=== PATIENT | female | born 1945 | race Caucasian/White ===

== ENCOUNTER 2016-08-14 12:54 | Inpatient (IN) | payer MEDICARE, OTHER ==
[~2016-08-14] VITALS: Ht 152.4 cm; Wt 88.4 kg
[2016-08-14] VITALS (7 sets, daily range): BP systolic 107–148; BP diastolic 57–76
[~2016-08-14 12:54] MED LIST: PHENYLEPHRINE 10 MG/ML ONE; PROPOFOL 10 MG/ML, 20ML ONE; PROPOFOL 10 MG/ML, 50ML ONE
[2016-08-14] MEDS ORDERED: SODIUM CHLORIDE 0.9% 1,000ML IVBOLUS ONE (13:30)
[2016-08-14] MEDS ORDERED: SODIUM CHLORIDE FLUSH 10ML SYR IVF ONE (13:30)
[2016-08-14] MEDS ORDERED: ALBUTEROL/IPRATROPIUM 2.5MG/0.5MG, 3 ML NPPB ONE (13:30)
[2016-08-14 13:56] LABS: ASPARTATE AMINO TRANSFERASE 17 U/L (15-37); BLOOD UREA NITROGEN 77 mg/dL (7-18)
[2016-08-14] MEDS ORDERED: ONDANSETRON 2MG/ML, 2ML IVPush ONE (14:00)
[2016-08-14] MEDS ORDERED: HYDROmorphone 1 MG/ML, 1ML IVPush PRN (14:00)
[2016-08-14] MEDS ORDERED: MECLIZINE CHEWABLE 25 MG TAB PO ONE (14:00)
[2016-08-14] MEDS ORDERED: SODIUM CHLORIDE 0.9% 1,000 ML IV ONE (14:00)
[2016-08-14 14:03] LABS: IS PT STATUS REG ER OR PRE ER? YES
[2016-08-14] MEDS ORDERED: ALBUTEROL/IPRATROPIUM 2.5MG/0.5MG, 3 ML ONE (14:04)
[2016-08-14 14:13] LABS: HEMOGLOBIN 7.1 g/dL (11.7-16.4)
[2016-08-14] MEDS ORDERED: HYDROmorphone 1 MG/ML, 1ML ONE (14:17)
[2016-08-14] MEDS ORDERED: ONDANSETRON 2MG/ML, 2ML ONE (14:18)
[2016-08-14] MEDS ORDERED: MECLIZINE CHEWABLE 25 MG TAB ONE (14:18)
[2016-08-14 14:32] LABS: DIFF TOTAL CELLS COUNTED 100 CELL DIFF
[2016-08-14 14:34] LABS: ANISOCYTOSIS 2+; HYPOCHROMIA 1+; MICROCYTOSIS 1+
[2016-08-14 14:35] LABS: POIKILOCYTOSIS 1+; POLYCHROMASIA 1+
[2016-08-14 14:36] LABS: VERIFY COUNTS? YES
[2016-08-14] MEDS ORDERED: GLIP10TA13 PO (14:40)
[2016-08-14] MEDS ORDERED: ASPI-515 PO (14:40)
[2016-08-14] MEDS ORDERED: CHOL20002 PO (14:40)
[2016-08-14] MEDS ORDERED: SITA50TA PO (14:40)
[2016-08-14] MEDS ORDERED: PANTOPRAZOLE 80 MG in SODIUM CHLORIDE 0.9% 100 ML IV SCH (15:03)
[2016-08-14] MEDS ORDERED: PANTOPRAZOLE 80 MG in SODIUM CHLORIDE 0.9% 50 ML IVPB ONE (15:03)
[2016-08-14] MEDS: SODIUM CHLORIDE 0.9% 1,000 ML IV SCH ×2 (15:34→23:34)
[2016-08-14] MEDS ORDERED: LABETALOL 5MG/ML, 20ML IV PRN (16:00)
[2016-08-14] MEDS ORDERED: BISACODYL 10 MG SUPP PR PRN (16:00)
[2016-08-14] MEDS ORDERED: ACETAMINOPHEN 325 MG TABLET PO PRN (16:00)
[2016-08-14] MEDS ORDERED: INSULIN REGULAR 100 UNITS/ML, 3ML VIAL SQ-INSULIN SCH (16:00)
[2016-08-14] MEDS ORDERED: MORPHINE SULFATE 4 MG/ML, 1ML IVPush PRN (16:00)
[2016-08-14] MEDS ORDERED: POLYETHYLENE GLYCOL 17 GM PACKET PO PRN (16:00)
[2016-08-14] MEDS ORDERED: ONDANSETRON 2MG/ML, 2ML IVP PRN (16:00)
[2016-08-14] MEDS ORDERED: OMNIPAQUE 350 MG/ML, 75ML BOTTLE ONE (16:58)
[2016-08-14] MEDS: INSULIN REGULAR 100 UNITS/ML, 3ML VIAL SQ-INSULIN SCH (21:26)
[2016-08-14 21:27] LABS: HEMOGLOBIN 7.9 g/dL (11.7-16.4)
[2016-08-14] MEDS: PANTOPRAZOLE 80 MG in SODIUM CHLORIDE 0.9% 100 ML IV SCH (21:33)
[2016-08-15] VITALS (7 sets, daily range): BP systolic 127–141; BP diastolic 52–73
[2016-08-15] MEDS: INSULIN REGULAR 100 UNITS/ML, 3ML VIAL SQ-INSULIN SCH ×4 (02:30→20:25)
[2016-08-15] MEDS: SODIUM CHLORIDE 0.9% 1,000 ML IV SCH (03:00)
[2016-08-15] MEDS: D5%-0.45% NACL 1,000 ML IV SCH ×3 (04:00→20:00)
[2016-08-15 04:51] LABS: BLOOD UREA NITROGEN 73 mg/dL (7-18)
[2016-08-15 04:59] LABS: ASPARTATE AMINO TRANSFERASE 116 U/L (15-37)
[2016-08-15 05:07] LABS: HEMOGLOBIN 8.7 g/dL (11.7-16.4)
[2016-08-15] MEDS ORDERED: PROMETHAZINE 25 MG/ML, 1ML IV PRN (09:30)
[2016-08-15] MEDS ORDERED: METOCLOPRAMIDE 5 MG/ML, 2ML IV PRN (09:30)
[2016-08-15] MEDS ORDERED: LABETALOL 5MG/ML, 20ML IV PRN (09:30)
[2016-08-15] MEDS ORDERED: FENTANYL PF 100 MCG/2ML IV PRN (09:30)
[2016-08-15] MEDS ORDERED: OXYcodone 5 MG/5 ML ORAL.SOL UDC PO PRN (09:30)
[2016-08-15] MEDS ORDERED: MEPERIDINE/PF 25MG/0.5ML IVPush PRN (09:30)
[2016-08-15] MEDS ORDERED: ONDANSETRON 2MG/ML, 2ML IVPush PRN (09:30)
[2016-08-15] MEDS ORDERED: hydrALAzine 20 MG/ML, 1ML IV PRN (09:30)
[2016-08-15] MEDS ORDERED: ACETAMINOPHEN 325 MG TABLET PO PRN (09:30)
[2016-08-15] MEDS ORDERED: HYDROmorphone 1 MG/ML, 1ML IV PRN (09:30)
[2016-08-15] MEDS ORDERED: MIDAZOLAM 1 MG/ML, 2ML IV PRN (09:30)
[2016-08-15 10:04] LABS: HEMOGLOBIN 7.8 g/dL (11.7-16.4)
[2016-08-15] MEDS: PANTOPRAZOLE 80 MG in SODIUM CHLORIDE 0.9% 100 ML IV SCH ×2 (10:30→20:25)
[2016-08-15] MEDS ORDERED: MIDAZOLAM 1 MG/ML, 5ML ONE (13:10)
[2016-08-15] MEDS ORDERED: FENTANYL PF 100 MCG/2ML ONE (13:10)
[2016-08-15] MEDS ORDERED: NALOXONE 1 MG/ML, 2ML ONE (13:10)
[2016-08-15] MEDS ORDERED: FLUMAZENIL 0.1 MG/1 ML, 5ML ONE (13:11)
[2016-08-15] MEDS: HYDROmorphone 1 MG/ML, 1ML IV PRN ×3 (15:33→23:08)
[2016-08-15 16:09] LABS: HEMOGLOBIN 7.7 g/dL (11.7-16.4)
[2016-08-15] MEDS: CHOLECALCIFEROL 1,000 UNIT TABLET PO SCH (16:57)
[2016-08-15 21:49] LABS: HEMOGLOBIN 7.9 g/dL (11.7-16.4)
[2016-08-16] VITALS (10 sets, daily range): BP systolic 114–158; BP diastolic 41–73
[2016-08-16] MEDS: HYDROmorphone 1 MG/ML, 1ML IV PRN ×3 (02:03→09:49)
[2016-08-16] MEDS: INSULIN REGULAR 100 UNITS/ML, 3ML VIAL SQ-INSULIN SCH ×4 (02:30→20:10)
[2016-08-16] MEDS: D5%-0.45% NACL 1,000 ML IV SCH ×3 (04:00→20:03)
[2016-08-16 04:59] LABS: HEMOGLOBIN 7.4 g/dL (11.7-16.4)
[2016-08-16 05:12] LABS: BLOOD UREA NITROGEN 35 mg/dL (7-18)
[2016-08-16] MEDS: PANTOPRAZOLE 80 MG in SODIUM CHLORIDE 0.9% 100 ML IV SCH ×2 (06:34→15:48)
[2016-08-16] MEDS ORDERED: DIPHENHYDRAMINE 50 MG/ML, 1ML IVPush ONE (07:00)
[2016-08-16] MEDS ORDERED: ACETAMINOPHEN 325 MG TABLET PO ONE (07:00)
[2016-08-16] MEDS ORDERED: FUROSEMIDE 20 MG/2 ML IVPush ONE (07:00)
[2016-08-16] MEDS: CHOLECALCIFEROL 1,000 UNIT TABLET PO SCH (09:24)
[2016-08-16] MEDS: CEFTRIAXONE PMX 1GM/50ML 50 ML IV SCH (09:54)
[2016-08-16] MEDS: DOXYCYCLINE 100 MG in DEXTROSE 5% 250 ML IV SCH ×2 (11:55→20:10)
[2016-08-16] MEDS ORDERED: FUROSEMIDE 20 MG/2 ML IV ONE (12:00)
[2016-08-16] MEDS: HYDROcodone/APAP 5/325 TABLET PO PRN ×2 (15:48→22:26)
[2016-08-16 16:18] LABS: HEMOGLOBIN 8.2 g/dL (11.7-16.4)
[2016-08-17 01:15] VITALS: BP 115/65
[2016-08-17] MEDS: INSULIN REGULAR 100 UNITS/ML, 3ML VIAL SQ-INSULIN SCH ×4 (01:38→21:42)
[2016-08-17] MEDS: PANTOPRAZOLE 80 MG in SODIUM CHLORIDE 0.9% 100 ML IV SCH ×3 (01:41→19:08)
[2016-08-17] MEDS: D5%-0.45% NACL 1,000 ML IV SCH ×2 (01:42→08:57)
[2016-08-17 05:07] LABS: BLOOD UREA NITROGEN 24 mg/dL (7-18)
[2016-08-17 05:13] LABS: HEMOGLOBIN 9.4 g/dL (11.7-16.4)
[2016-08-17] MEDS: HYDROcodone/APAP 5/325 TABLET PO PRN ×4 (05:43→21:33)
[2016-08-17 08:05] VITALS: BP 109/66
[2016-08-17] MEDS: CHOLECALCIFEROL 1,000 UNIT TABLET PO SCH (08:54)
[2016-08-17] MEDS: DOXYCYCLINE 100 MG in DEXTROSE 5% 250 ML IV SCH ×2 (08:54→21:23)
[2016-08-17 10:18] LABS: HEMOGLOBIN 8.5 g/dL (11.7-16.4)
[2016-08-17] MEDS: CEFTRIAXONE PMX 1GM/50ML 50 ML IV SCH (10:32)
[2016-08-17] MEDS ORDERED: FUROSEMIDE 20 MG/2 ML IV ONE (12:30)
[2016-08-17 13:10] VITALS: BP 117/64
[2016-08-17 15:57] LABS: HEMOGLOBIN 8.9 g/dL (11.7-16.4)
[2016-08-17 19:01] VITALS: BP 104/60
[2016-08-17] MEDS ORDERED: ALBUTEROL/IPRATROPIUM 2.5MG/0.5MG, 3 ML NPPB PRN (20:30)
[2016-08-17 21:40] LABS: HEMOGLOBIN 9.6 g/dL (11.7-16.4)
[2016-08-18] MEDS: INSULIN REGULAR 100 UNITS/ML, 3ML VIAL SQ-INSULIN SCH ×4 (02:30→20:30)
[2016-08-18 03:46] VITALS: BP 131/76
[2016-08-18 05:20] LABS: HEMOGLOBIN 9.2 g/dL (11.7-16.4)
[2016-08-18 05:29] LABS: BLOOD UREA NITROGEN 16 mg/dL (7-18)
[2016-08-18] MEDS: PANTOPRAZOLE 80 MG in SODIUM CHLORIDE 0.9% 100 ML IV SCH ×2 (05:30→15:24)
[2016-08-18] MEDS: HYDROmorphone 1 MG/ML, 1ML IV PRN ×2 (08:31→14:19)
[2016-08-18 08:43] VITALS: BP 137/79
[2016-08-18] MEDS: CEFTRIAXONE PMX 1GM/50ML 50 ML IV SCH (09:22)
[2016-08-18] MEDS: CHOLECALCIFEROL 1,000 UNIT TABLET PO SCH (09:25)
[2016-08-18] MEDS: DOXYCYCLINE 100 MG in DEXTROSE 5% 250 ML IV SCH ×2 (10:05→21:48)
[2016-08-18 14:28] VITALS: BP 117/72
[2016-08-18] MEDS: HYDROcodone/APAP 5/325 TABLET PO PRN (18:13)
[2016-08-18 20:34] VITALS: BP 102/61
[2016-08-19] MEDS: HYDROcodone/APAP 5/325 TABLET PO PRN ×4 (00:52→20:45)
[2016-08-19 01:01] VITALS: BP 116/69
[2016-08-19] MEDS: INSULIN REGULAR 100 UNITS/ML, 3ML VIAL SQ-INSULIN SCH ×4 (02:30→20:48)
[2016-08-19] MEDS: HYDROmorphone 1 MG/ML, 1ML IV PRN ×2 (03:34→08:26)
[2016-08-19] MEDS: PANTOPRAZOLE 80 MG in SODIUM CHLORIDE 0.9% 100 ML IV SCH ×2 (03:34→16:43)
[2016-08-19 05:00] LABS: HEMOGLOBIN 8.6 g/dL (11.7-16.4)
[2016-08-19 05:05] LABS: BLOOD UREA NITROGEN 15 mg/dL (7-18)
[2016-08-19] MEDS: CHOLECALCIFEROL 1,000 UNIT TABLET PO SCH (08:26)
[2016-08-19] MEDS: CEFTRIAXONE PMX 1GM/50ML 50 ML IV SCH (08:31)
[2016-08-19] MEDS ORDERED: POTASSIUM CHLORIDE 20 MEQ TAB.ER.PRT PO ONE (09:00)
[2016-08-19 09:04] VITALS: BP 116/64
[2016-08-19] MEDS: DOXYCYCLINE 100 MG in DEXTROSE 5% 250 ML IV SCH ×2 (09:33→20:35)
[2016-08-19 14:19] VITALS: BP 98/62
[2016-08-19 19:05] VITALS: BP 111/67
[2016-08-20 01:24] VITALS: BP 129/59
[2016-08-20] MEDS: INSULIN REGULAR 100 UNITS/ML, 3ML VIAL SQ-INSULIN SCH ×4 (02:30→20:31)
[2016-08-20 05:23] LABS: BLOOD UREA NITROGEN 14 mg/dL (7-18)
[2016-08-20 05:27] LABS: HEMOGLOBIN 8.7 g/dL (11.7-16.4)
[2016-08-20] MEDS: HYDROmorphone 1 MG/ML, 1ML IV PRN ×2 (05:30→10:34)
[2016-08-20 05:48] LABS: DIFF TOTAL CELLS COUNTED 100 CELL DIFF
[2016-08-20 05:49] LABS: ANISOCYTOSIS 1+; VERIFY COUNTS? YES
[2016-08-20 05:50] LABS: LARGE PLATELETS 1+; POLYCHROMASIA 1+
[2016-08-20 08:33] VITALS: BP 125/70
[2016-08-20] MEDS ORDERED: FLUMAZENIL 0.1 MG/1 ML, 5ML ONE (09:40)
[2016-08-20] MEDS ORDERED: NALOXONE 1 MG/ML, 2ML ONE (09:40)
[2016-08-20] MEDS ORDERED: MIDAZOLAM 1 MG/ML, 5ML ONE (09:40)
[2016-08-20] MEDS ORDERED: FENTANYL PF 100 MCG/2ML ONE (09:40)
[2016-08-20] MEDS ORDERED: LIDOCAINE 2%, 20ML ONE (10:49)
[2016-08-20 11:59] VITALS: BP 133/55
[2016-08-20] MEDS: DOXYCYCLINE 100 MG in DEXTROSE 5% 250 ML IV SCH ×2 (12:04→20:42)
[2016-08-20] MEDS: CHOLECALCIFEROL 1,000 UNIT TABLET PO SCH (12:07)
[2016-08-20] MEDS: CEFTRIAXONE PMX 1GM/50ML 50 ML IV SCH (13:39)
[2016-08-20 15:45] VITALS: BP 130/50
[2016-08-20] MEDS: PANTOPRAZOLE 80 MG in SODIUM CHLORIDE 0.9% 100 ML IV SCH ×2 (16:56→20:00)
[2016-08-20 19:02] VITALS: BP 107/66
[2016-08-20] MEDS: HYDROcodone/APAP 5/325 TABLET PO PRN (20:42)
[2016-08-21 00:59] VITALS: BP 115/71
[2016-08-21 05:38] LABS: HEMOGLOBIN 9.3 g/dL (11.7-16.4)
[2016-08-21 06:31] VITALS: BP 112/68
[2016-08-21] MEDS: PANTOPRAZOLE 80 MG in SODIUM CHLORIDE 0.9% 100 ML IV SCH ×2 (06:37→17:52)
[2016-08-21] MEDS: INSULIN REGULAR 100 UNITS/ML, 3ML VIAL SQ-INSULIN SCH ×4 (07:00→21:00)
[2016-08-21] MEDS: CHOLECALCIFEROL 1,000 UNIT TABLET PO SCH (09:23)
[2016-08-21] MEDS: DOXYCYCLINE 100 MG in DEXTROSE 5% 250 ML IV SCH ×2 (09:26→21:30)
[2016-08-21] MEDS: CEFTRIAXONE PMX 1GM/50ML 50 ML IV SCH (10:39)
[2016-08-21 13:06] VITALS: BP 97/58
[2016-08-21] MEDS: HYDROcodone/APAP 5/325 TABLET PO PRN (17:52)
[2016-08-21] MEDS: DOCUSATE 100 MG CAPSULE PO PRN (17:52)
[2016-08-21 20:54] VITALS: BP 103/56
[2016-08-22] MEDS: PANTOPRAZOLE 80 MG in SODIUM CHLORIDE 0.9% 100 ML IV SCH ×3 (01:48→22:05)
[2016-08-22 02:35] VITALS: BP 111/65
[2016-08-22 05:21] LABS: BLOOD UREA NITROGEN 11 mg/dL (7-18)
[2016-08-22 05:36] LABS: HEMOGLOBIN 7.6 g/dL (11.7-16.4)
[2016-08-22] MEDS: INSULIN REGULAR 100 UNITS/ML, 3ML VIAL SQ-INSULIN SCH ×4 (06:17→19:59)
[2016-08-22] MEDS ORDERED: LIDOCAINE 2%, 20ML ONE (08:13)
[2016-08-22] MEDS: CHOLECALCIFEROL 1,000 UNIT TABLET PO SCH (08:32)
[2016-08-22] MEDS ORDERED: MIDAZOLAM 1 MG/ML, 5ML ONE (08:58)
[2016-08-22] MEDS ORDERED: FENTANYL PF 100 MCG/2ML ONE (08:58)
[2016-08-22] MEDS ORDERED: FLUMAZENIL 0.1 MG/1 ML, 5ML ONE (08:58)
[2016-08-22] MEDS ORDERED: NALOXONE 1 MG/ML, 2ML ONE (08:58)
[2016-08-22] MEDS: DOXYCYCLINE 100 MG in DEXTROSE 5% 250 ML IV SCH ×2 (10:28→20:01)
[2016-08-22] MEDS: CEFTRIAXONE PMX 1GM/50ML 50 ML IV SCH (12:30)
[2016-08-22 13:00] VITALS: BP 130/61
[2016-08-22] MEDS: DOCUSATE 100 MG CAPSULE PO PRN (20:26)
[2016-08-22 20:38] VITALS: BP 140/57
[2016-08-23] MEDS: HYDROcodone/APAP 5/325 TABLET PO PRN (00:37)
[2016-08-23 01:53] VITALS: BP 122/68
[2016-08-23] MEDS: INSULIN REGULAR 100 UNITS/ML, 3ML VIAL SQ-INSULIN SCH ×3 (07:00→16:00)
[2016-08-23 07:34] VITALS: BP 113/38
[2016-08-23] MEDS: CHOLECALCIFEROL 1,000 UNIT TABLET PO SCH (09:18)
[2016-08-23] MEDS: PANTOPRAZOLE 80 MG in SODIUM CHLORIDE 0.9% 100 ML IV SCH (09:22)
[2016-08-23 15:02] VITALS: BP 139/55
[2016-08-23] MEDS ORDERED: INSU100V5 SQ-INSULIN (15:41)
[2016-08-23] MEDS ORDERED: PANT40TA3 PO (15:41)
[2016-08-23] MEDS ORDERED: DOCU-30 PO (15:41)
== END 2016-08-23 17:33 | DRG 356 ==
LOC: ED 14:30 → EDIP 15:24 → 3NW 17:46
PROVIDERS: ADMIT Family Medicine; ATTEND Family Medicine
PROC: 30233N1 Transfusion of Nonautologous Red Blood Cells into Peripheral Vein, Percutaneous Approach (ICD-10-PCS; 2016-08-14)
PROC: 0T9B70Z Drainage of Bladder with Drainage Device, Via Natural or Artificial Opening (ICD-10-PCS; 2016-08-14)
PROC: 0DB68ZX Excision of Stomach, Via Natural or Artificial Opening Endoscopic, Diagnostic (ICD-10-PCS; 2016-08-15)
PROC: 30233N1 Transfusion of Nonautologous Red Blood Cells into Peripheral Vein, Percutaneous Approach (ICD-10-PCS; 2016-08-15)
PROC: 0FB13ZX Excision of Right Lobe Liver, Percutaneous Approach, Diagnostic (ICD-10-PCS; 2016-08-15)
PROC: 30233N1 Transfusion of Nonautologous Red Blood Cells into Peripheral Vein, Percutaneous Approach (ICD-10-PCS; principal; 2016-08-16)
PROC: 06H03DZ Insertion of Intraluminal Device into Inferior Vena Cava, Percutaneous Approach (ICD-10-PCS; 2016-08-20)
PROC: 0JH63XZ Insertion of Tunneled Vascular Access Device into Chest Subcutaneous Tissue and Fascia, Percutaneous Approach (ICD-10-PCS; 2016-08-22)
PROC: 02HV33Z Insertion of Infusion Device into Superior Vena Cava, Percutaneous Approach (ICD-10-PCS; 2016-08-22)
PROC: B5181ZA Fluoroscopy of Superior Vena Cava using Low Osmolar Contrast, Guidance (ICD-10-PCS; 2016-08-22)
DX: C16.9 Malignant neoplasm of stomach, unspecified (principal); K25.4 Chronic or unspecified gastric ulcer with hemorrhage; N17.0 Acute kidney failure with tubular necrosis; J18.9 Pneumonia, unspecified organism; E44.0 Moderate protein-calorie malnutrition; C78.7 Secondary malignant neoplasm of liver and intrahepatic bile duct; I82.409 Acute embolism and thrombosis of unspecified deep veins of unspecified lower extremity; J98.11 Atelectasis; C78.89 Secondary malignant neoplasm of other digestive organs; K92.1 Melena; R65.10 Systemic inflammatory response syndrome (SIRS) of non-infectious origin without acute organ dysfunction; D72.829 Elevated white blood cell count, unspecified; D64.9 Anemia, unspecified; I10 Essential (primary) hypertension; Z66 Do not resuscitate; F17.210 Nicotine dependence, cigarettes, uncomplicated; E78.5 Hyperlipidemia, unspecified; E11.65 Type 2 diabetes mellitus with hyperglycemia; E11.621 Type 2 diabetes mellitus with foot ulcer; I25.10 Atherosclerotic heart disease of native coronary artery without angina pectoris; L97.519 Non-pressure chronic ulcer of other part of right foot with unspecified severity; Z82.49 Family history of ischemic heart disease and other diseases of the circulatory system; Z87.442 Personal history of urinary calculi; Z91.19 Patient's noncompliance with other medical treatment and regimen; Z83.3 Family history of diabetes mellitus; Z79.84 Long term (current) use of oral hypoglycemic drugs; Z90.710 Acquired absence of both cervix and uterus; Z68.38 Body mass index [BMI] 38.0-38.9, adult; D35.02 Benign neoplasm of left adrenal gland; R16.0 Hepatomegaly, not elsewhere classified; L97.509 Non-pressure chronic ulcer of other part of unspecified foot with unspecified severity
CPT/HCPCS: 36415; 36561; 37191; 47000; 70450; 71010; 71260; 74020; 74176; 76937; 77001; 77012; 80048; 80053; 80307; 81001; 82010; 82378; 82962; 83036; 83605; 83690; 83880; 84484; 85014; 85018; 85025; 85610; 86301; 86850; 86900; 86923; 87040; 88305; 88307; 88341; 88342; 93005; 94640; 96361; 96365; 96375; 99156; 99157; J0696; J1170; J1815; J2250; J2405; J2704; J3010; J3490; J7060; J7620; Q9967; C1769; C1788; C1880; C9113; G0461; J1200; J1642; J1940; J2310; J2370; J7030; P9016

== ENCOUNTER 2016-10-08 16:56 | Inpatient (IN) | payer MEDICARE ==
[~2016-10-08] VITALS: Ht 152.4 cm; Wt 75.1 kg
[2016-10-08] MEDS ORDERED: SODIUM CHLORIDE 0.9% 1,000 ML IV ONE (17:34)
[2016-10-08] MEDS ORDERED: SODIUM CHLORIDE FLUSH 10ML SYR IVF ONE (18:00)
[2016-10-08 18:27] LABS: BLOOD UREA NITROGEN 29 mg/dL (7-18)
[2016-10-08 18:31] LABS: ASPARTATE AMINO TRANSFERASE 30 U/L (15-37)
[2016-10-08] MEDS ORDERED: HEPARIN 25,000 UNITS/500ML PMX 0 ML ONE (20:17)
[2016-10-08] MEDS ORDERED: HEPARIN 5,000 UNITS/ML, 1ML ONE (20:17)
[2016-10-08] MEDS ORDERED: NS + 20MEQ KCL 1,000 ML IV SCH (20:17)
[2016-10-08] MEDS ORDERED: HEPARIN 5,000 UNITS/ML, 1ML IV ONE (20:30)
[2016-10-08] MEDS ORDERED: morphine SULFATE 10 MG/ML, 1ML IVPush PRN (20:30)
[2016-10-08] MEDS ORDERED: DOCUSATE 100 MG CAPSULE PO PRN (20:30)
[2016-10-08] MEDS ORDERED: POLYETHYLENE GLYCOL 17 GM PACKET PO PRN (20:30)
[2016-10-08 21:43] VITALS: BP 115/69
[2016-10-08] MEDS: OXYcodone IR 5MG TABLET PO PRN (22:39)
[2016-10-08] MEDS: PANTOPROZOLE 40MG TABLET PO SCH (23:19)
[2016-10-08] MEDS: SITAGLIPTIN 50MG TABLET PO SCH (23:20)
[2016-10-08] MEDS: PROCHLORPERAZINE 10MG TABLET PO PRN (23:21)
[2016-10-08] MEDS: SUCRALFATE 1 GM/10 ML UDC PO SCH (23:50)
[2016-10-09] MEDS: HEPARIN 25,000 UNITS/500ML PMX 500 ML IV PRN
[2016-10-09 01:07] VITALS: BP 156/84
[2016-10-09] MEDS: ONDANSETRON 2MG/ML, 2ML IVPush PRN ×2 (01:34→17:21)
[2016-10-09 07:07] LABS: BLOOD UREA NITROGEN 32 mg/dL (7-18)
[2016-10-09 08:57] VITALS: BP 109/68
[2016-10-09 09:06] VITALS: BP 127/82
[2016-10-09] MEDS: HEPARIN 5,000 UNITS/ML, 1ML IV PRN (09:07)
[2016-10-09] MEDS: SENNA/DOCUSATE TABLET PO SCH (09:08)
[2016-10-09] MEDS: SUCRALFATE 1 GM/10 ML UDC PO SCH ×4 (09:08→20:28)
[2016-10-09] MEDS: PANTOPROZOLE 40MG TABLET PO SCH ×2 (09:08→20:28)
[2016-10-09] MEDS: SITAGLIPTIN 50MG TABLET PO SCH ×2 (09:08→20:28)
[2016-10-09] MEDS: OXYcodone IR 5MG TABLET PO PRN ×2 (14:02→18:40)
[2016-10-09 15:15] VITALS: BP 122/76
[2016-10-09 19:02] VITALS: BP 115/74
[2016-10-10 01:32] VITALS: BP 126/74
[2016-10-10] MEDS: HEPARIN 25,000 UNITS/500ML PMX 500 ML IV PRN (04:46)
[2016-10-10] MEDS: OXYcodone IR 5MG TABLET PO PRN (05:35)
[2016-10-10 07:59] VITALS: BP 132/57
[2016-10-10] MEDS: SENNA/DOCUSATE TABLET PO SCH (08:00)
[2016-10-10] MEDS: SITAGLIPTIN 50MG TABLET PO SCH ×2 (08:00→21:01)
[2016-10-10] MEDS: PANTOPROZOLE 40MG TABLET PO SCH ×2 (08:00→21:01)
[2016-10-10] MEDS: SUCRALFATE 1 GM/10 ML UDC PO SCH ×4 (08:00→21:01)
[2016-10-10] MEDS: ONDANSETRON 2MG/ML, 2ML IVPush PRN (12:07)
[2016-10-10 14:34] VITALS: BP 143/65
[2016-10-10 20:49] VITALS: BP 137/59
[2016-10-11 01:13] VITALS: BP 120/46
[2016-10-11 04:41] LABS: BLOOD UREA NITROGEN 27 mg/dL (7-18)
[2016-10-11] MEDS: OXYcodone IR 5MG TABLET PO PRN ×2 (04:43→21:53)
[2016-10-11 06:27] LABS: DIFF TOTAL CELLS COUNTED 100 CELL DIFF
[2016-10-11 06:46] LABS: ANISOCYTOSIS 1+; HYPOCHROMIA 1+; VERIFY COUNTS? YES
[2016-10-11 07:27] VITALS: BP 134/62
[2016-10-11] MEDS: PANTOPROZOLE 40MG TABLET PO SCH ×2 (07:37→20:34)
[2016-10-11] MEDS: SUCRALFATE 1 GM/10 ML UDC PO SCH ×4 (07:37→20:34)
[2016-10-11] MEDS: SITAGLIPTIN 50MG TABLET PO SCH ×2 (07:38→20:35)
[2016-10-11] MEDS: SENNA/DOCUSATE TABLET PO SCH (07:38)
[2016-10-11] MEDS: HEPARIN 25,000 UNITS/500ML PMX 500 ML IV PRN (07:42)
[2016-10-11] MEDS ORDERED: BISACODYL 10 MG SUPP PR PRN (09:30)
[2016-10-11 13:10] VITALS: BP 132/55
[2016-10-11 17:33] LABS: OCCBLD OBC PASS
[2016-10-11 19:37] VITALS: BP 134/46
[2016-10-12 00:52] VITALS: BP 128/79
[2016-10-12] MEDS: OXYcodone IR 5MG TABLET PO PRN ×2 (05:45→14:13)
[2016-10-12 07:00] VITALS: BP 110/55
[2016-10-12] MEDS: SITAGLIPTIN 50MG TABLET PO SCH ×2 (08:37→20:23)
[2016-10-12] MEDS: SUCRALFATE 1 GM/10 ML UDC PO SCH ×4 (08:37→20:23)
[2016-10-12] MEDS: SENNA/DOCUSATE TABLET PO SCH (08:37)
[2016-10-12] MEDS: PANTOPROZOLE 40MG TABLET PO SCH ×2 (08:37→20:23)
[2016-10-12 13:40] VITALS: BP 119/55
[2016-10-12] MEDS: HEPARIN 25,000 UNITS/500ML PMX 500 ML IV PRN (14:08)
[2016-10-12 20:32] VITALS: BP 109/35
[2016-10-13 00:39] VITALS: BP 95/58
[2016-10-13] MEDS: OXYcodone IR 5MG TABLET PO PRN ×3 (02:51→22:28)
[2016-10-13 05:12] LABS: BLOOD UREA NITROGEN 14 mg/dL (7-18)
[2016-10-13] MEDS: HEPARIN 5,000 UNITS/ML, 1ML IV PRN (05:47)
[2016-10-13 06:45] VITALS: BP 113/53
[2016-10-13] MEDS: SUCRALFATE 1 GM/10 ML UDC PO SCH ×4 (07:25→21:01)
[2016-10-13] MEDS: ONDANSETRON 8 MG TABLET PO PRN ×2 (08:36→15:48)
[2016-10-13] MEDS: PANTOPROZOLE 40MG TABLET PO SCH ×2 (08:37→21:01)
[2016-10-13] MEDS: SITAGLIPTIN 50MG TABLET PO SCH ×2 (08:37→21:01)
[2016-10-13] MEDS: SENNA/DOCUSATE TABLET PO SCH (08:37)
[2016-10-13] MEDS: ENOXAPARIN 80 MG/0.8 ML SQ SCH ×2 (09:12→21:01)
[2016-10-13] MEDS: PROCHLORPERAZINE 10MG TABLET PO PRN (13:25)
[2016-10-13 14:43] VITALS: BP 117/56
[2016-10-13 19:07] VITALS: BP 117/71
[2016-10-14] VITALS (9 sets, daily range): BP systolic 103–129; BP diastolic 64–81
[2016-10-14 04:57] LABS: BLOOD UREA NITROGEN 13 mg/dL (7-18)
[2016-10-14] MEDS: OXYcodone IR 5MG TABLET PO PRN ×2 (06:17→22:28)
[2016-10-14 06:33] LABS: OCCBLD OBC PASS
[2016-10-14] MEDS ORDERED: FUROSEMIDE 20 MG/2 ML IVPush ONE (07:30)
[2016-10-14] MEDS: SUCRALFATE 1 GM/10 ML UDC PO SCH ×4 (08:14→19:57)
[2016-10-14] MEDS: ENOXAPARIN 80 MG/0.8 ML SQ SCH ×2 (08:14→19:57)
[2016-10-14] MEDS: PANTOPROZOLE 40MG TABLET PO SCH ×2 (08:14→19:57)
[2016-10-14] MEDS: SITAGLIPTIN 50MG TABLET PO SCH ×2 (08:15→19:57)
[2016-10-14] MEDS: SENNA/DOCUSATE TABLET PO SCH (08:15)
[2016-10-14] MEDS: POTASSIUM CHLORIDE 20 MEQ TAB.ER.PRT PO SCH ×2 (08:18→17:31)
[2016-10-15 00:40] VITALS: BP 133/77
[2016-10-15] MEDS: OXYcodone IR 5MG TABLET PO PRN ×2 (02:36→10:21)
[2016-10-15 05:06] LABS: BLOOD UREA NITROGEN 12 mg/dL (7-18)
[2016-10-15 07:00] VITALS: BP 147/76
[2016-10-15] MEDS: SUCRALFATE 1 GM/10 ML UDC PO SCH ×3 (07:55→17:19)
[2016-10-15] MEDS: PANTOPROZOLE 40MG TABLET PO SCH (07:55)
[2016-10-15] MEDS: ENOXAPARIN 80 MG/0.8 ML SQ SCH ×2 (07:56→18:17)
[2016-10-15] MEDS: SITAGLIPTIN 50MG TABLET PO SCH (07:56)
[2016-10-15] MEDS: SENNA/DOCUSATE TABLET PO SCH (07:56)
[2016-10-15] MEDS ORDERED: OXYC5TAB3 PO (12:41)
[2016-10-15] MEDS ORDERED: PANT40TA5 PO (12:41)
[2016-10-15] MEDS ORDERED: SUCR1ORA2 PO (12:41)
[2016-10-15] MEDS ORDERED: ENOX80SY4 SQ (12:41)
[2016-10-15 12:53] VITALS: BP 106/63
== END 2016-10-15 18:00 | disposition home or self-care (01) | DRG 299 ==
LOC: SUATTDRO 20:11 → ED 20:11 → EDIP 20:20 → 3NW 21:23
PROVIDERS: ADMIT Family Medicine; ATTEND Family Medicine
PROC: 30233N1 Transfusion of Nonautologous Red Blood Cells into Peripheral Vein, Percutaneous Approach (ICD-10-PCS; principal; 2016-10-14)
DX: I82.411 Acute embolism and thrombosis of right femoral vein (principal); E43 Unspecified severe protein-calorie malnutrition; C16.9 Malignant neoplasm of stomach, unspecified; C78.7 Secondary malignant neoplasm of liver and intrahepatic bile duct; D68.69 Other thrombophilia; I82.441 Acute embolism and thrombosis of right tibial vein; I82.431 Acute embolism and thrombosis of right popliteal vein; G89.29 Other chronic pain; I82.491 Acute embolism and thrombosis of other specified deep vein of right lower extremity; D63.8 Anemia in other chronic diseases classified elsewhere; E11.40 Type 2 diabetes mellitus with diabetic neuropathy, unspecified; E11.65 Type 2 diabetes mellitus with hyperglycemia; E78.5 Hyperlipidemia, unspecified; I10 Essential (primary) hypertension; D63.0 Anemia in neoplastic disease; K21.9 Gastro-esophageal reflux disease without esophagitis; K59.00 Constipation, unspecified; R33.9 Retention of urine, unspecified; Z66 Do not resuscitate; Z82.49 Family history of ischemic heart disease and other diseases of the circulatory system; Z83.2 Family history of diseases of the blood and blood-forming organs and certain disorders involving the immune mechanism; Z85.028 Personal history of other malignant neoplasm of stomach; Z87.11 Personal history of peptic ulcer disease; Z87.442 Personal history of urinary calculi; Z87.891 Personal history of nicotine dependence; Z79.84 Long term (current) use of oral hypoglycemic drugs; Z90.710 Acquired absence of both cervix and uterus; Z68.32 Body mass index [BMI] 32.0-32.9, adult
CPT/HCPCS: 36415; 80048; 80053; 82272; 83690; 83735; 85014; 85018; 85025; 85520; 85610; 85730; 86850; 86870; 86880; 86900; 86902; 86922; 86923; 87324; 93005; 99285; J1644; J1650; J2405; J3480; Q0162; Q0164; J1940; J2270; P9016

== ENCOUNTER → 2016-10-08 | Outpatient (CLI) | payer MEDICARE ==
[~2016-10-08] MED LIST changes: +ASPI-515 PO; +CHOL20002 PO; +DOCU-30 PO; +GLIP10TA13 PO; +INSU100V5 SQ-INSULIN; +ONDA-40 PO; +PANT40TA3 PO; -PHENYLEPHRINE 10 MG/ML ONE; +PROC10TA PO; -PROPOFOL 10 MG/ML, 20ML ONE; -PROPOFOL 10 MG/ML, 50ML ONE; +SITA50TA PO
== END | disposition home or self-care (01) ==
LOC: RAD 15:35
PROVIDERS: ATTEND Internal Medicine Hematology & Oncology
DX: I82.491 Acute embolism and thrombosis of other specified deep vein of right lower extremity (principal); C16.6 Malignant neoplasm of greater curvature of stomach, unspecified

== ENCOUNTER 2016-10-17 17:42 | Inpatient (IN) | payer MEDICARE ==
[~2016-10-17] VITALS: Ht 152.4 cm; Wt 70.8 kg
[~2016-10-17 17:42] MED LIST changes: +ENOX80SY4 SQ; +OXYC5TAB3 PO; +PANT40TA5 PO; +SUCR1ORA2 PO
[2016-10-17] MEDS ORDERED: SODIUM CHLORIDE 0.9% 1,000 ML IV ONE (18:24)
[2016-10-17] MEDS ORDERED: PANTOPRAZOLE 40 MG IV IVPush ONE (18:30)
[2016-10-17] MEDS ORDERED: FAMOTIDINE 20 MG/2 ML IVPush ONE (18:30)
[2016-10-17] MEDS ORDERED: SODIUM CHLORIDE 0.9% 1,000ML IVBOLUS ONE (18:30)
[2016-10-17] MEDS ORDERED: SODIUM CHLORIDE FLUSH 10ML SYR IVF ONE (18:30)
[2016-10-17 19:24] LABS: ASPARTATE AMINO TRANSFERASE 44 U/L (15-37); BLOOD UREA NITROGEN 21 mg/dL (7-18)
[2016-10-17 19:51] LABS: DIFF TOTAL CELLS COUNTED 100 CELL DIFF
[2016-10-17 19:55] LABS: ANISOCYTOSIS 2+; POLYCHROMASIA 1+
[2016-10-17 19:56] LABS: LARGE PLATELETS 1+; POIKILOCYTOSIS 1+
[2016-10-17 19:57] LABS: VERIFY COUNTS? YES
[2016-10-17] MEDS ORDERED: PANTOPRAZOLE 40 MG IV ONE (20:24)
[2016-10-17] MEDS ORDERED: FAMOTIDINE 20 MG/2 ML ONE (20:24)
[2016-10-17] MEDS ORDERED: NS + 20MEQ KCL 1,000 ML IV SCH ×2 (20:39→21:30)
[2016-10-17] MEDS ORDERED: DO NOT GIVE MC SCH (21:00)
[2016-10-17] MEDS ORDERED: PROMETHAZINE 25 MG/ML, 1ML IM PRN (21:00)
[2016-10-17] MEDS ORDERED: ACETAMINOPHEN 325 MG TABLET PO PRN (21:00)
[2016-10-17] MEDS ORDERED: POLYETHYLENE GLYCOL 17 GM PACKET PO PRN (21:00)
[2016-10-17] MEDS: SITAGLIPTIN 50MG TABLET PO SCH ×2 (21:00→23:00)
[2016-10-17] MEDS ORDERED: BISACODYL 10 MG SUPP PR PRN (21:00)
[2016-10-17] MEDS ORDERED: GLUCAGON 1 MG IM PRN (21:00)
[2016-10-17] MEDS: INSULIN ASPART 100 UNITS/ML, PEN SQ-INSULIN SCH (21:00)
[2016-10-17] MEDS ORDERED: DOCUSATE 100 MG CAPSULE PO PRN (21:00)
[2016-10-17] MEDS ORDERED: DEXTROSE 4 GM TAB.CHEW PO PRN (21:00)
[2016-10-17] MEDS ORDERED: DEXTROSE 50%, 50ML SYRINGE IVPush PRN (21:00)
[2016-10-17 22:55] VITALS: BP 131/54
[2016-10-17] MEDS: SUCRALFATE 1 GM/10 ML UDC PO SCH (23:00)
[2016-10-17] MEDS: SODIUM CHLORIDE FLUSH 10ML SYR IVF SCH (23:00)
[2016-10-17] MEDS: HEPARIN 25,000 UNITS/500ML PMX 500 ML IV PRN (23:36)
[2016-10-17] MEDS: OXYcodone IR 5MG TABLET PO PRN (23:43)
[2016-10-18 00:21] VITALS: BP 131/58
[2016-10-18] MEDS: OXYcodone IR 5MG TABLET PO PRN ×3 (06:15→18:25)
[2016-10-18 06:29] VITALS: BP 138/83
[2016-10-18 06:45] LABS: BLOOD UREA NITROGEN 18 mg/dL (7-18)
[2016-10-18] MEDS: INSULIN ASPART 100 UNITS/ML, PEN SQ-INSULIN SCH ×4 (07:00→19:45)
[2016-10-18] MEDS: SUCRALFATE 1 GM/10 ML UDC PO SCH ×4 (08:09→19:46)
[2016-10-18] MEDS: SITAGLIPTIN 50MG TABLET PO SCH ×2 (08:10→19:46)
[2016-10-18] MEDS: PANTOPRAZOLE 40 MG IV IVPush SCH ×2 (08:10→19:46)
[2016-10-18] MEDS: SODIUM CHLORIDE FLUSH 10ML SYR IVF SCH ×2 (09:00→19:47)
[2016-10-18 13:49] VITALS: BP 112/75
[2016-10-18 19:21] VITALS: BP 131/77
[2016-10-19 02:32] VITALS: BP 133/59
[2016-10-19] MEDS: HEPARIN 25,000 UNITS/500ML PMX 500 ML IV PRN (04:34)
[2016-10-19] MEDS: OXYcodone IR 5MG TABLET PO PRN (04:36)
[2016-10-19] MEDS: INSULIN ASPART 100 UNITS/ML, PEN SQ-INSULIN SCH ×4 (07:00→21:00)
[2016-10-19 07:33] VITALS: BP 102/66
[2016-10-19] MEDS: SUCRALFATE 1 GM/10 ML UDC PO SCH ×4 (08:11→22:11)
[2016-10-19] MEDS: SITAGLIPTIN 50MG TABLET PO SCH ×2 (08:11→22:11)
[2016-10-19] MEDS: SODIUM CHLORIDE FLUSH 10ML SYR IVF SCH ×2 (08:11→21:00)
[2016-10-19] MEDS: PANTOPRAZOLE 40 MG IV IVPush SCH ×2 (08:11→22:11)
[2016-10-19 12:42] VITALS: BP 108/62
[2016-10-19 13:05] LABS: ASPARTATE AMINO TRANSFERASE 44 U/L (15-37); BLOOD UREA NITROGEN 13 mg/dL (7-18)
[2016-10-19] MEDS ORDERED: FAMOTIDINE 20 MG/2 ML IVPush ONE (14:30)
[2016-10-19] MEDS ORDERED: DIPHENHYDRAMINE 50 MG/ML, 1ML IVPush ONE (14:30)
[2016-10-19] MEDS ORDERED: ONDANSETRON 8 MG in SODIUM CHLORIDE 0.9% 50 ML IVPB ONE (14:30)
[2016-10-19] MEDS ORDERED: DEXTROSE 5% IV ONE (15:00)
[2016-10-19] MEDS ORDERED: OXALIPLATIN 150 MG in DEXTROSE 5% 250 ML IV ONE (15:00)
[2016-10-19] MEDS ORDERED: LEUCOVORIN IV ONE (15:00)
[2016-10-19] MEDS ORDERED: FLUOROURACIL IV ONE (17:00)
[2016-10-19] MEDS ORDERED: FLUOROURACIL IV SCH (17:00)
[2016-10-19] MEDS ORDERED: SODIUM CHLORIDE 0.9% IV SCH (17:00)
[2016-10-19] MEDS: ONDANSETRON 2MG/ML, 2ML IVPush PRN (17:57)
[2016-10-19 21:08] VITALS: BP 125/43
[2016-10-19 22:34] LABS: OCCBLD OBC PASS
[2016-10-20 02:31] VITALS: BP 114/70
[2016-10-20] MEDS ORDERED: DIPHENOXYLATE/ATROPINE TABLET PO PRN ×3 (04:00→08:00)
[2016-10-20] MEDS: OXYcodone IR 5MG TABLET PO PRN ×2 (06:01→23:02)
[2016-10-20 07:28] VITALS: BP 135/42
[2016-10-20] MEDS: SUCRALFATE 1 GM/10 ML UDC PO SCH ×4 (08:08→21:20)
[2016-10-20] MEDS: SITAGLIPTIN 50MG TABLET PO SCH ×2 (08:08→21:21)
[2016-10-20] MEDS: INSULIN ASPART 100 UNITS/ML, PEN SQ-INSULIN SCH ×4 (08:08→21:00)
[2016-10-20] MEDS: PANTOPRAZOLE 40 MG IV IVPush SCH ×2 (08:09→21:21)
[2016-10-20] MEDS: SODIUM CHLORIDE FLUSH 10ML SYR IVF SCH ×2 (08:09→21:21)
[2016-10-20] MEDS: HEPARIN 25,000 UNITS/500ML PMX 500 ML IV PRN (10:00)
[2016-10-20 12:55] VITALS: BP 104/63
[2016-10-20] MEDS ORDERED: FLUOROURACIL IV SCH (19:30)
[2016-10-20] MEDS ORDERED: SODIUM CHLORIDE 0.9% IV SCH (19:30)
[2016-10-20 21:45] VITALS: BP 115/43
[2016-10-21] MEDS: morphine SULFATE 10 MG/ML, 1ML IVPush PRN (00:07)
[2016-10-21 01:40] VITALS: BP 118/57
[2016-10-21 04:43] LABS: BLOOD UREA NITROGEN 12 mg/dL (7-18)
[2016-10-21] MEDS: OXYcodone IR 5MG TABLET PO PRN ×3 (05:59→20:45)
[2016-10-21] MEDS: SODIUM CHLORIDE FLUSH 10ML SYR IVF SCH ×2 (07:50→20:45)
[2016-10-21] MEDS: PANTOPRAZOLE 40 MG IV IVPush SCH ×2 (07:50→20:45)
[2016-10-21] MEDS: SUCRALFATE 1 GM/10 ML UDC PO SCH ×4 (07:50→17:40)
[2016-10-21] MEDS: SITAGLIPTIN 50MG TABLET PO SCH ×2 (07:50→20:45)
[2016-10-21] MEDS: INSULIN ASPART 100 UNITS/ML, PEN SQ-INSULIN SCH ×4 (07:57→20:43)
[2016-10-21 08:01] VITALS: BP 143/52
[2016-10-21] MEDS ORDERED: POTASSIUM CHLORIDE 20 MEQ TAB.ER.PRT PO ONE (13:00)
[2016-10-21 13:59] VITALS: BP 117/42
[2016-10-21] MEDS: ONDANSETRON 2MG/ML, 2ML IVPush PRN (14:06)
[2016-10-21] MEDS: HEPARIN 25,000 UNITS/500ML PMX 500 ML IV PRN (17:37)
[2016-10-21 20:45] VITALS: BP 123/44
[2016-10-22 01:55] VITALS: BP 148/58
[2016-10-22] MEDS: OXYcodone IR 5MG TABLET PO PRN ×2 (03:04→22:31)
[2016-10-22 07:59] LABS: BLOOD UREA NITROGEN 10 mg/dL (7-18)
[2016-10-22] MEDS: INSULIN ASPART 100 UNITS/ML, PEN SQ-INSULIN SCH ×4 (08:37→21:00)
[2016-10-22] MEDS: SUCRALFATE 1 GM/10 ML UDC PO SCH ×4 (08:38→22:31)
[2016-10-22] MEDS: PANTOPRAZOLE 40 MG IV IVPush SCH ×2 (08:38→22:30)
[2016-10-22] MEDS: SITAGLIPTIN 50MG TABLET PO SCH ×2 (08:38→22:31)
[2016-10-22] MEDS: SODIUM CHLORIDE FLUSH 10ML SYR IVF SCH ×2 (09:00→22:31)
[2016-10-22 09:03] VITALS: BP 124/47
[2016-10-22] MEDS ORDERED: POTASSIUM CHLORIDE 20 MEQ TAB.ER.PRT PO ONE (13:30)
[2016-10-22 13:46] VITALS: BP 124/66
[2016-10-22] MEDS: ONDANSETRON 2MG/ML, 2ML IVPush PRN (14:53)
[2016-10-22] MEDS: HEPARIN 25,000 UNITS/500ML PMX 500 ML IV PRN (17:27)
[2016-10-22 20:20] VITALS: BP 135/51
[2016-10-23] MEDS ORDERED: MORPHINE SULFATE 4 MG/ML, 1ML ONE (01:16)
[2016-10-23] MEDS: morphine SULFATE 10 MG/ML, 1ML IVPush PRN (01:19)
[2016-10-23 02:35] VITALS: BP 137/46
[2016-10-23 05:19] LABS: BLOOD UREA NITROGEN 8 mg/dL (7-18)
[2016-10-23] MEDS: INSULIN ASPART 100 UNITS/ML, PEN SQ-INSULIN SCH ×4 (07:00→21:00)
[2016-10-23] MEDS: SUCRALFATE 1 GM/10 ML UDC PO SCH ×4 (07:48→21:15)
[2016-10-23] MEDS: PANTOPRAZOLE 40 MG IV IVPush SCH ×2 (07:48→21:15)
[2016-10-23] MEDS: SITAGLIPTIN 50MG TABLET PO SCH ×2 (10:34→21:16)
[2016-10-23] MEDS: SODIUM CHLORIDE FLUSH 10ML SYR IVF SCH ×2 (10:34→21:15)
[2016-10-23] MEDS ORDERED: POTASSIUM CHLORIDE 20 MEQ TAB.ER.PRT PO ONE (11:00)
[2016-10-23] MEDS ORDERED: POLYETHYLENE GLYCOL 17 GM PACKET NG ONE (11:00)
[2016-10-23 12:43] VITALS: BP 127/49
[2016-10-23] MEDS: FUROSEMIDE 40 MG/4 ML IV SCH (16:53)
[2016-10-23] MEDS: HEPARIN 25,000 UNITS/500ML PMX 500 ML IV PRN (19:51)
[2016-10-23 20:35] VITALS: BP 114/72
[2016-10-23] MEDS: OXYcodone IR 5MG TABLET PO PRN (22:58)
[2016-10-24 05:19] VITALS: BP 118/48
[2016-10-24 06:45] LABS: BLOOD UREA NITROGEN 7 mg/dL (7-18)
[2016-10-24] MEDS: INSULIN ASPART 100 UNITS/ML, PEN SQ-INSULIN SCH ×4 (08:55→20:41)
[2016-10-24] MEDS: FUROSEMIDE 40 MG/4 ML IV SCH ×2 (08:55→16:11)
[2016-10-24] MEDS: PANTOPRAZOLE 40 MG IV IVPush SCH ×2 (08:55→20:53)
[2016-10-24] MEDS: SUCRALFATE 1 GM/10 ML UDC PO SCH ×4 (08:55→20:53)
[2016-10-24] MEDS: SODIUM CHLORIDE FLUSH 10ML SYR IVF SCH ×2 (08:56→20:54)
[2016-10-24] MEDS: SITAGLIPTIN 50MG TABLET PO SCH ×2 (08:56→20:54)
[2016-10-24 09:05] VITALS: BP 118/45
[2016-10-24] MEDS ORDERED: POTASSIUM CHLORIDE 20 MEQ TAB.ER.PRT PO ONE (12:30)
[2016-10-24] MEDS: ENOXAPARIN 80 MG/0.8 ML SQ SCH (13:15)
[2016-10-24 14:09] VITALS: BP 119/54
[2016-10-24 20:45] VITALS: BP 137/49
[2016-10-24] MEDS: OXYcodone IR 5MG TABLET PO PRN (20:53)
[2016-10-25] VITALS (7 sets, daily range): BP systolic 108–123; BP diastolic 41–87
[2016-10-25] MEDS: ENOXAPARIN 80 MG/0.8 ML SQ SCH ×2 (00:41→11:32)
[2016-10-25 01:22] LABS: BLOOD UREA NITROGEN 8 mg/dL (7-18)
[2016-10-25] MEDS: ZOLPIDEM 5MG TABLET PO PRN (01:54)
[2016-10-25] MEDS: INSULIN ASPART 100 UNITS/ML, PEN SQ-INSULIN SCH ×4 (07:00→20:51)
[2016-10-25] MEDS: SODIUM CHLORIDE FLUSH 10ML SYR IVF SCH ×2 (07:58→20:52)
[2016-10-25] MEDS: SUCRALFATE 1 GM/10 ML UDC PO SCH ×4 (07:58→20:52)
[2016-10-25] MEDS: PANTOPRAZOLE 40 MG IV IVPush SCH (07:58)
[2016-10-25] MEDS: FUROSEMIDE 40 MG/4 ML IV SCH ×2 (07:58→16:20)
[2016-10-25] MEDS: OXYcodone IR 5MG TABLET PO PRN ×2 (07:59→20:52)
[2016-10-25] MEDS: SITAGLIPTIN 50MG TABLET PO SCH ×2 (07:59→20:52)
[2016-10-25] MEDS ORDERED: DIPHENHYDRAMINE 25 MG CAPSULE PO ONE ×2 (16:00→23:00)
[2016-10-25] MEDS ORDERED: ACETAMINOPHEN 325 MG TABLET PO ONE ×2 (16:00→23:00)
[2016-10-25] MEDS: PANTOPROZOLE 40MG TABLET PO SCH ×2 (16:19→23:09)
[2016-10-26] VITALS (9 sets, daily range): BP systolic 110–155; BP diastolic 44–79
[2016-10-26] MEDS: ENOXAPARIN 80 MG/0.8 ML SQ SCH ×2 (00:51→13:20)
[2016-10-26] MEDS: ZOLPIDEM 5MG TABLET PO PRN (01:50)
[2016-10-26] MEDS: SUCRALFATE 1 GM/10 ML UDC PO SCH ×4 (07:41→19:48)
[2016-10-26] MEDS: INSULIN ASPART 100 UNITS/ML, PEN SQ-INSULIN SCH ×4 (07:41→19:48)
[2016-10-26] MEDS: SITAGLIPTIN 50MG TABLET PO SCH ×2 (07:41→19:48)
[2016-10-26] MEDS: FUROSEMIDE 40 MG/4 ML IV SCH (07:41)
[2016-10-26] MEDS: SODIUM CHLORIDE FLUSH 10ML SYR IVF SCH ×2 (07:41→19:48)
[2016-10-26] MEDS: PANTOPROZOLE 40MG TABLET PO SCH (10:54)
[2016-10-26] MEDS: ONDANSETRON 2MG/ML, 2ML IVPush PRN (17:24)
[2016-10-27] MEDS: PANTOPROZOLE 40MG TABLET PO SCH ×2 (00:37→11:11)
[2016-10-27] MEDS: ENOXAPARIN 80 MG/0.8 ML SQ SCH ×2 (00:38→13:00)
[2016-10-27] MEDS: ZOLPIDEM 5MG TABLET PO PRN (00:41)
[2016-10-27 01:05] VITALS: BP 111/52
[2016-10-27] MEDS: SODIUM CHLORIDE FLUSH 10ML SYR IVF SCH (08:00)
[2016-10-27] MEDS: INSULIN ASPART 100 UNITS/ML, PEN SQ-INSULIN SCH ×2 (08:00→11:00)
[2016-10-27] MEDS ORDERED: PANT40TA5 PO (10:54)
[2016-10-27] MEDS: SUCRALFATE 1 GM/10 ML UDC PO SCH ×2 (11:00→11:10)
[2016-10-27] MEDS: SITAGLIPTIN 50MG TABLET PO SCH (11:11)
[2016-11-03] MEDS ORDERED: PANT40TA5 PO (13:51)
[2016-11-03] MEDS ORDERED: SUCR1ORA2 PO (13:51)
== END 2016-10-27 13:15 | disposition home or self-care (01) | DRG 374 ==
LOC: ED 20:06 → EDIP 20:07 → SUATTDRO 20:15 → ED 20:36 → 3NW 21:25
PROC: 3E04305 Introduction of Other Antineoplastic into Central Vein, Percutaneous Approach (ICD-10-PCS; principal; 2016-10-25)
PROC: 30233N1 Transfusion of Nonautologous Red Blood Cells into Peripheral Vein, Percutaneous Approach (ICD-10-PCS; 2016-10-25)
DX: C16.9 Malignant neoplasm of stomach, unspecified (principal); E43 Unspecified severe protein-calorie malnutrition; K92.1 Melena; C78.7 Secondary malignant neoplasm of liver and intrahepatic bile duct; D68.59 Other primary thrombophilia; D68.32 Hemorrhagic disorder due to extrinsic circulating anticoagulants; Z51.11 Encounter for antineoplastic chemotherapy; E87.6 Hypokalemia; D64.9 Anemia, unspecified; E11.9 Type 2 diabetes mellitus without complications; E78.5 Hyperlipidemia, unspecified; F17.210 Nicotine dependence, cigarettes, uncomplicated; I10 Essential (primary) hypertension; Z66 Do not resuscitate; Z79.01 Long term (current) use of anticoagulants; Z83.3 Family history of diabetes mellitus; Z86.718 Personal history of other venous thrombosis and embolism; Z87.11 Personal history of peptic ulcer disease; Z92.21 Personal history of antineoplastic chemotherapy; Z68.30 Body mass index [BMI] 30.0-30.9, adult; T45.515A Adverse effect of anticoagulants, initial encounter
CPT/HCPCS: 36415; 80048; 80053; 82272; 82330; 82962; 83690; 85014; 85018; 85025; 85520; 85610; 85730; 86850; 86870; 86900; 86902; 86922; 86923; 87324; 93005; 96374; 96375; J0640; J1644; J1650; J1815; J1940; J2405; J2550; J3480; J7060; C9113; J1200; J2270; J7030; J9190; J9263; P9016; Q0163; S0028

== ENCOUNTER 2016-11-05 15:53 | Emergency (ER) | payer MEDICARE ==
[~2016-11-05] VITALS: Ht 154.9 cm; Wt 73.1 kg
[2016-11-05] MEDS ORDERED: ONDANSETRON 2MG/ML, 2ML IVPush ONE (16:30)
[2016-11-05] MEDS ORDERED: MORPHINE SULFATE 4 MG/ML, 1ML ONE ×2 (16:54→17:48)
[2016-11-05] MEDS ORDERED: ONDANSETRON 2MG/ML, 2ML ONE (16:55)
[2016-11-05] MEDS: MORPHINE SULFATE 4 MG/ML, 1ML IVPush PRN ×2 (17:06→17:50)
[2016-11-05 17:13] LABS: BLOOD UREA NITROGEN 9 mg/dL (7-18)
[2016-11-05 17:17] LABS: IS PT STATUS REG ER OR PRE ER? YES
[2016-11-05] MEDS ORDERED: POTASSIUM CHLORIDE 20 MEQ TAB.ER.PRT ONE (17:48)
[2016-11-05 17:53] VITALS: BP 159/61
[2016-11-05] MEDS ORDERED: POTASSIUM CHLORIDE 20 MEQ TAB.ER.PRT PO ONE (18:00)
== END 2016-11-05 18:21 | disposition home or self-care (01) ==
LOC: ED 18:00
DX: R07.2 Precordial pain (principal); E11.9 Type 2 diabetes mellitus without complications; E78.5 Hyperlipidemia, unspecified; I10 Essential (primary) hypertension; Z85.028 Personal history of other malignant neoplasm of stomach; Z87.891 Personal history of nicotine dependence; Z86.718 Personal history of other venous thrombosis and embolism
CPT/HCPCS: 36415; 71010; 80048; 82040; 83880; 84484; 85025; 85610; 93005; 96374; 96375; 96376; 99285; J2405

== ENCOUNTER → 2016-12-04 | Outpatient (CLI) | payer MEDICARE ==
[~2016-12-04] MED LIST changes: +OMNIPAQUE 350 MG/ML, 100ML BOTTLE ONE
== END | disposition home or self-care (01) ==
LOC: CFH 12:24
PROVIDERS: ATTEND Internal Medicine Hematology & Oncology
DX: C16.6 Malignant neoplasm of greater curvature of stomach, unspecified (principal); C78.7 Secondary malignant neoplasm of liver and intrahepatic bile duct; C79.51 Secondary malignant neoplasm of bone; K86.9 Disease of pancreas, unspecified; I82.4Z2 Acute embolism and thrombosis of unspecified deep veins of left distal lower extremity
CPT/HCPCS: 71260; 74177; 93971; Q9967

== ENCOUNTER 2016-12-13 12:13 | Emergency (ER) | payer MEDICARE ==
[~2016-12-13] VITALS: Ht 154.9 cm; Wt 81.0 kg
[~2016-12-13 12:13] MED LIST changes: -OMNIPAQUE 350 MG/ML, 100ML BOTTLE ONE
[2016-12-13] MEDS ORDERED: SODIUM CHLORIDE FLUSH 10ML SYR IVF ONE (12:30)
[2016-12-13] MEDS ORDERED: PLEASE ENTER HEIGHT AND WEIGHT MC SCH (12:30)
[2016-12-13 13:33] LABS: BLOOD UREA NITROGEN 16 mg/dL (7-18)
[2016-12-13] MEDS ORDERED: POTASSIUM CHLORIDE 20 MEQ TAB.ER.PRT PO ONE (14:00)
[2016-12-13] MEDS ORDERED: POTASSIUM CHLORIDE 20 MEQ TAB.ER.PRT ONE (14:09)
[2016-12-13 14:48] VITALS: BP 124/54
== END 2016-12-13 14:50 | disposition home or self-care (01) ==
LOC: ED 13:43
DX: S00.93XA Contusion of unspecified part of head, initial encounter (principal); E11.65 Type 2 diabetes mellitus with hyperglycemia; E78.5 Hyperlipidemia, unspecified; I10 Essential (primary) hypertension; Z86.718 Personal history of other venous thrombosis and embolism; W18.11XA Fall from or off toilet without subsequent striking against object, initial encounter; Y93.89 Activity, other specified; Y92.091 Bathroom in other non-institutional residence as the place of occurrence of the external cause; Y99.9 Unspecified external cause status
CPT/HCPCS: 36415; 70450; 71010; 72125; 80048; 82040; 82550; 85025; 85610; 99285

== ENCOUNTER 2017-01-04 10:44 | Inpatient (IN) | payer MEDICARE ==
[~2017-01-04] VITALS: Ht 165.1 cm; Wt 76.0 kg
[2017-01-04] MEDS ORDERED: MECLIZINE CHEWABLE 25 MG TAB ONE (11:23)
[2017-01-04] MEDS ORDERED: MECLIZINE CHEWABLE 25 MG TAB PO ONE (11:30)
[2017-01-04 12:00] LABS: BLOOD UREA NITROGEN 7 mg/dL (7-18)
[2017-01-04 12:03] LABS: DIFF TOTAL CELLS COUNTED 100 CELL DIFF
[2017-01-04 12:11] LABS: IS PT STATUS REG ER OR PRE ER? YES
[2017-01-04] MEDS ORDERED: POTASSIUM CHLORIDE 20 MEQ TAB.ER.PRT PO ONE (13:00)
[2017-01-04 13:05] LABS: HEMATOCRIT 28.1 % (34.6-47.8)
[2017-01-04 13:07] LABS: WHITE BLOOD COUNT 4.2 x10^3/uL (3.4-10)
[2017-01-04 13:08] LABS: HEMOGLOBIN 9.5 g/dL (11.7-16.4)
[2017-01-04 13:18] LABS: OVALOCYTES 1+; VERIFY COUNTS? YES
[2017-01-04 13:19] LABS: ANISOCYTOSIS 2+; POLYCHROMASIA 1+
[2017-01-04] MEDS ORDERED: POTASSIUM CHLORIDE 20 MEQ TAB.ER.PRT ONE (13:22)
[2017-01-04] MEDS ORDERED: OMNIPAQUE 350 MG/ML, 100ML BOTTLE ONE (14:51)
[2017-01-04] MEDS ORDERED: MORP15TA3 PO (17:46)
[2017-01-04] MEDS ORDERED: OXYC1TAB7 PO (17:46)
[2017-01-04] MEDS ORDERED: SUCR1ORA2 PO (17:50)
[2017-01-04] MEDS ORDERED: morphine SULFATE 10 MG/ML, 1ML IVPush PRN (19:30)
[2017-01-04] MEDS ORDERED: POLYETHYLENE GLYCOL 17 GM PACKET PO PRN (19:30)
[2017-01-04] MEDS ORDERED: TEMAZEPAM 15 MG CAPSULE PO PRN (19:30)
[2017-01-04] MEDS ORDERED: POTASSIUM CHLORIDE 40 MEQ in SODIUM CHLORIDE 0.9% 500 ML IV ONE (19:30)
[2017-01-04] MEDS ORDERED: hydrALAzine 20 MG/ML, 1ML IVPush PRN (19:30)
[2017-01-04] MEDS ORDERED: BISACODYL 10 MG SUPP PR PRN (19:30)
[2017-01-04] MEDS ORDERED: MECLIZINE CHEWABLE 25 MG TAB PO PRN (19:30)
[2017-01-04] MEDS ORDERED: ENALAPRILAT 1.25 MG/ML, 2ML IVPush PRN (19:30)
[2017-01-04] MEDS ORDERED: ONDANSETRON 8 MG TABLET PO PRN (19:30)
[2017-01-04] MEDS ORDERED: SUCRALFATE 1 GM/10 ML UDC PO ONE (19:30)
[2017-01-04] MEDS: NS + 20MEQ KCL 1,000 ML IV SCH (20:23)
[2017-01-04 20:33] VITALS: BP 132/74
[2017-01-04] MEDS: INSULIN ASPART 100 UNITS/ML, PEN SQ-INSULIN SCH (21:00)
[2017-01-05 01:27] VITALS: BP 136/57
[2017-01-05 04:50] LABS: ASPARTATE AMINO TRANSFERASE 22 U/L (15-37); BLOOD UREA NITROGEN 8 mg/dL (7-18)
[2017-01-05 04:56] LABS: HEMATOCRIT 27.4 % (34.6-47.8); WHITE BLOOD COUNT 4.1 x10^3/uL (3.4-10)
[2017-01-05] MEDS: INSULIN ASPART 100 UNITS/ML, PEN SQ-INSULIN SCH ×4 (07:00→20:24)
[2017-01-05 08:04] VITALS: BP 141/74
[2017-01-05] MEDS: SENNA/DOCUSATE TABLET PO SCH (09:11)
[2017-01-05] MEDS: CHOLECALCIFEROL 1,000 UNIT TABLET PO SCH (09:11)
[2017-01-05] MEDS ORDERED: GADOBUTROL 7.5 MMOL/7.5 ML PFS ONE (10:53)
[2017-01-05] MEDS ORDERED: OMNIPAQUE 350 MG/ML, 75ML BOTTLE ONE (13:08)
[2017-01-05] MEDS: NS + 20MEQ KCL 1,000 ML IV SCH (13:13)
[2017-01-05 13:24] VITALS: BP 126/73
[2017-01-05 18:51] VITALS: BP 107/64
[2017-01-06 02:16] VITALS: BP 129/76
[2017-01-06] MEDS ORDERED: ENOXAPARIN 40 MG/0.4 ML SQ SCH (05:30)
[2017-01-06 07:00] VITALS: BP 128/66
[2017-01-06] MEDS: INSULIN ASPART 100 UNITS/ML, PEN SQ-INSULIN SCH ×4 (07:00→20:22)
[2017-01-06] MEDS: SENNA/DOCUSATE TABLET PO SCH (09:09)
[2017-01-06] MEDS: CHOLECALCIFEROL 1,000 UNIT TABLET PO SCH (09:09)
[2017-01-06] MEDS ORDERED: FUROSEMIDE 20 MG/2 ML IV ONE (13:00)
[2017-01-06 14:10] VITALS: BP 101/60
[2017-01-06] MEDS: HEPARIN 5,000 UNITS/ML, 1ML SQ SCH ×2 (15:45→23:44)
[2017-01-06 19:38] VITALS: BP 124/77
[2017-01-07 01:22] VITALS: BP 95/53
[2017-01-07] MEDS: OXYcodone IR 5MG TABLET PO PRN (05:44)
[2017-01-07] MEDS: INSULIN ASPART 100 UNITS/ML, PEN SQ-INSULIN SCH ×4 (07:00→21:00)
[2017-01-07 08:00] VITALS: BP 136/73
[2017-01-07] MEDS: HEPARIN 5,000 UNITS/ML, 1ML SQ SCH ×3 (08:26→23:52)
[2017-01-07] MEDS: SENNA/DOCUSATE TABLET PO SCH (08:27)
[2017-01-07] MEDS: CHOLECALCIFEROL 1,000 UNIT TABLET PO SCH (08:27)
[2017-01-07 13:56] VITALS: BP 106/59
[2017-01-07 19:52] VITALS: BP 109/68
[2017-01-08 02:25] VITALS: BP 114/71
[2017-01-08 03:23] LABS: BLOOD UREA NITROGEN 10 mg/dL (7-18)
[2017-01-08 03:32] LABS: HEMATOCRIT 23.9 % (34.6-47.8); HEMOGLOBIN 7.8 g/dL (11.7-16.4); WHITE BLOOD COUNT 2.9 x10^3/uL (3.4-10)
[2017-01-08 04:01] LABS: DIFF TOTAL CELLS COUNTED 100 CELL DIFF
[2017-01-08 04:08] LABS: ANISOCYTOSIS 2+; VERIFY COUNTS? YES
[2017-01-08 04:09] LABS: LARGE PLATELETS 1+; OVALOCYTES 1+
[2017-01-08] MEDS: INSULIN ASPART 100 UNITS/ML, PEN SQ-INSULIN SCH ×4 (07:38→21:44)
[2017-01-08 07:40] VITALS: BP 121/70
[2017-01-08] MEDS: HEPARIN 5,000 UNITS/ML, 1ML SQ SCH ×2 (08:36→16:00)
[2017-01-08] MEDS: SENNA/DOCUSATE TABLET PO SCH (08:37)
[2017-01-08] MEDS: CHOLECALCIFEROL 1,000 UNIT TABLET PO SCH (08:37)
[2017-01-08] MEDS: ONDANSETRON 2MG/ML, 2ML IVPush PRN (11:52)
[2017-01-08 13:35] VITALS: BP 103/70
[2017-01-08 18:47] VITALS: BP 117/69
[2017-01-09 01:34] VITALS: BP 109/60
[2017-01-09 05:56] LABS: BLOOD UREA NITROGEN 8 mg/dL (7-18)
[2017-01-09 07:00] LABS: HEMATOCRIT 23.5 % (34.6-47.8); HEMOGLOBIN 7.8 g/dL (11.7-16.4); WHITE BLOOD COUNT 2.3 x10^3/uL (3.4-10)
[2017-01-09] MEDS: INSULIN ASPART 100 UNITS/ML, PEN SQ-INSULIN SCH ×4 (07:21→21:30)
[2017-01-09 07:48] VITALS: BP 125/79
[2017-01-09] MEDS: CHOLECALCIFEROL 1,000 UNIT TABLET PO SCH (09:07)
[2017-01-09] MEDS: SENNA/DOCUSATE TABLET PO SCH (09:07)
[2017-01-09 14:14] VITALS: BP 103/62
[2017-01-09] MEDS: OXYcodone IR 5MG TABLET PO PRN (15:42)
[2017-01-09 19:32] VITALS: BP 93/53
[2017-01-10 01:26] VITALS: BP 104/58
[2017-01-10] MEDS ORDERED: HYDROCORTISONE 100 MG INJ. IVPush PRN (02:30)
[2017-01-10 04:10] LABS: ASPARTATE AMINO TRANSFERASE 24 U/L (15-37); BLOOD UREA NITROGEN 8 mg/dL (7-18)
[2017-01-10 04:14] LABS: CARCINOEMBRYONIC ANTIGEN 135.98 ng/mL (0.0-3.00); HEMATOCRIT 24.4 % (34.6-47.8); WHITE BLOOD COUNT 3.3 x10^3/uL (3.4-10)
[2017-01-10] MEDS: INSULIN ASPART 100 UNITS/ML, PEN SQ-INSULIN SCH ×4 (07:00→19:38)
[2017-01-10 07:44] VITALS: BP 105/61
[2017-01-10] MEDS: CHOLECALCIFEROL 1,000 UNIT TABLET PO SCH (08:46)
[2017-01-10] MEDS: SENNA/DOCUSATE TABLET PO SCH (08:46)
[2017-01-10] MEDS: ONDANSETRON 2MG/ML, 2ML IVPush PRN (11:14)
[2017-01-10] MEDS ORDERED: OMNIPAQUE 350 MG/ML, 100ML BOTTLE ONE (13:33)
[2017-01-10 14:00] VITALS: BP 105/57
[2017-01-10 19:27] VITALS: BP 135/65
[2017-01-10 19:32] VITALS: BP 123/71
[2017-01-11 01:37] VITALS: BP 105/69
[2017-01-11] MEDS: INSULIN ASPART 100 UNITS/ML, PEN SQ-INSULIN SCH ×4 (07:00→20:42)
[2017-01-11 07:29] VITALS: BP 114/68
[2017-01-11] MEDS: CHOLECALCIFEROL 1,000 UNIT TABLET PO SCH (08:55)
[2017-01-11] MEDS: SENNA/DOCUSATE TABLET PO SCH (08:55)
[2017-01-11 12:02] LABS: BLOOD UREA NITROGEN 9 mg/dL (7-18)
[2017-01-11 12:41] LABS: HEMATOCRIT 25.2 % (34.6-47.8); HEMOGLOBIN 8.4 g/dL (11.7-16.4); WHITE BLOOD COUNT 6.2 x10^3/uL (3.4-10)
[2017-01-11 12:49] LABS: DIFF TOTAL CELLS COUNTED 100 CELL DIFF
[2017-01-11 12:57] LABS: ANISOCYTOSIS 2+; LARGE PLATELETS 1+; OVALOCYTES 1+; VERIFY COUNTS? YES
[2017-01-11 13:05] VITALS: BP 116/70
[2017-01-11 20:39] VITALS: BP 134/50
[2017-01-12 01:00] VITALS: BP 119/74
[2017-01-12 01:54] LABS: BLOOD UREA NITROGEN 10 mg/dL (7-18)
[2017-01-12 03:46] LABS: HEMATOCRIT 23.1 % (34.6-47.8); HEMOGLOBIN 7.7 g/dL (11.7-16.4); WHITE BLOOD COUNT 4.3 x10^3/uL (3.4-10)
[2017-01-12 03:47] LABS: DIFF TOTAL CELLS COUNTED 100 CELL DIFF
[2017-01-12 03:57] LABS: ANISOCYTOSIS 2+; VERIFY COUNTS? YES
[2017-01-12 03:58] LABS: POLYCHROMASIA 1+
[2017-01-12 03:59] LABS: LARGE PLATELETS 1+
[2017-01-12 06:20] VITALS: BP 113/66
[2017-01-12] MEDS: INSULIN ASPART 100 UNITS/ML, PEN SQ-INSULIN SCH ×4 (07:37→21:00)
[2017-01-12] MEDS: CHOLECALCIFEROL 1,000 UNIT TABLET PO SCH (07:37)
[2017-01-12] MEDS: SENNA/DOCUSATE TABLET PO SCH (07:38)
[2017-01-12] MEDS: POTASSIUM CHLORIDE 20 MEQ TAB.ER.PRT PO SCH ×2 (11:24→16:08)
[2017-01-12] MEDS: OXYcodone IR 5MG TABLET PO PRN ×2 (13:17→23:56)
[2017-01-12 13:53] VITALS: BP 125/74
[2017-01-12 18:40] VITALS: BP 23/78
[2017-01-13 00:35] VITALS: BP 103/67
[2017-01-13] MEDS: OXYcodone IR 5MG TABLET PO PRN (00:39)
[2017-01-13] MEDS: INSULIN ASPART 100 UNITS/ML, PEN SQ-INSULIN SCH ×4 (07:00→21:00)
[2017-01-13 07:30] VITALS: BP 102/58
[2017-01-13] MEDS: POTASSIUM CHLORIDE 20 MEQ TAB.ER.PRT PO SCH ×2 (08:39→11:36)
[2017-01-13] MEDS: SENNA/DOCUSATE TABLET PO SCH (08:40)
[2017-01-13] MEDS: CHOLECALCIFEROL 1,000 UNIT TABLET PO SCH (08:40)
[2017-01-13 13:43] VITALS: BP 98/62
[2017-01-13 19:37] VITALS: BP 109/64
[2017-01-14 01:20] VITALS: BP 107/63
[2017-01-14 06:55] VITALS: BP 124/58
[2017-01-14] MEDS: INSULIN ASPART 100 UNITS/ML, PEN SQ-INSULIN SCH ×4 (08:21→21:00)
[2017-01-14] MEDS: CHOLECALCIFEROL 1,000 UNIT TABLET PO SCH (11:13)
[2017-01-14] MEDS: SENNA/DOCUSATE TABLET PO SCH (11:13)
[2017-01-14 12:40] VITALS: BP 114/71
[2017-01-14 21:32] VITALS: BP 116/67
[2017-01-15] VITALS (9 sets, daily range): BP systolic 110–162; BP diastolic 49–68
[2017-01-15 06:50] LABS: ASPARTATE AMINO TRANSFERASE 17 U/L (15-37); BLOOD UREA NITROGEN 12 mg/dL (7-18); FERRITIN 1052.2 ng/mL (8-252)
[2017-01-15] MEDS: INSULIN ASPART 100 UNITS/ML, PEN SQ-INSULIN SCH ×4 (07:00→21:00)
[2017-01-15 07:42] LABS: HEMATOCRIT 24.9 % (34.6-47.8); HEMOGLOBIN 8.1 g/dL (11.7-16.4); WHITE BLOOD COUNT 4.1 x10^3/uL (3.4-10)
[2017-01-15 08:02] LABS: ANISOCYTOSIS 1+; POLYCHROMASIA 1+
[2017-01-15] MEDS: SENNA/DOCUSATE TABLET PO SCH (08:22)
[2017-01-15] MEDS: CHOLECALCIFEROL 1,000 UNIT TABLET PO SCH (08:23)
[2017-01-16 01:06] VITALS: BP 118/75
[2017-01-16 06:04] LABS: BLOOD UREA NITROGEN 11 mg/dL (7-18)
[2017-01-16 06:22] LABS: HEMATOCRIT 26.6 % (34.6-47.8); HEMOGLOBIN 8.8 g/dL (11.7-16.4); WHITE BLOOD COUNT 5.7 x10^3/uL (3.4-10)
[2017-01-16] MEDS: INSULIN ASPART 100 UNITS/ML, PEN SQ-INSULIN SCH ×3 (07:00→16:00)
[2017-01-16 07:25] VITALS: BP 106/64
[2017-01-16] MEDS: CHOLECALCIFEROL 1,000 UNIT TABLET PO SCH (08:50)
[2017-01-16] MEDS: SENNA/DOCUSATE TABLET PO SCH (08:50)
[2017-01-16] MEDS ORDERED: INSU100I18 SQ-INSULIN (10:10)
[2017-01-16] MEDS ORDERED: BISA10SU65 PR (10:10)
[2017-01-16] MEDS ORDERED: MECL-85 PO (10:10)
[2017-01-16 13:43] VITALS: BP 102/63
[2017-01-16] MEDS ORDERED: PNEUMOCOCCAL 23 VACCINE IM-VACC ONE (16:30)
== END 2017-01-16 18:15 | DRG 374 ==
LOC: ED 12:19 → EDIP 19:28 → 3NW 19:44 → 4NOR 01-08 05:47 → 3NW 01-09 09:30
PROVIDERS: ADMIT Internal Medicine; ATTEND Internal Medicine
DX: C16.9 Malignant neoplasm of stomach, unspecified (principal); E43 Unspecified severe protein-calorie malnutrition; C79.51 Secondary malignant neoplasm of bone; D68.69 Other thrombophilia; C78.7 Secondary malignant neoplasm of liver and intrahepatic bile duct; R53.2 Functional quadriplegia; C78.89 Secondary malignant neoplasm of other digestive organs; E11.65 Type 2 diabetes mellitus with hyperglycemia; C79.72 Secondary malignant neoplasm of left adrenal gland; H81.10 Benign paroxysmal vertigo, unspecified ear; D69.6 Thrombocytopenia, unspecified; L97.519 Non-pressure chronic ulcer of other part of right foot with unspecified severity; D64.9 Anemia, unspecified; E87.6 Hypokalemia; E78.5 Hyperlipidemia, unspecified; I10 Essential (primary) hypertension; D72.819 Decreased white blood cell count, unspecified; E87.8 Other disorders of electrolyte and fluid balance, not elsewhere classified; M16.11 Unilateral primary osteoarthritis, right hip; Z66 Do not resuscitate; Z79.01 Long term (current) use of anticoagulants; Z80.1 Family history of malignant neoplasm of trachea, bronchus and lung; Z82.49 Family history of ischemic heart disease and other diseases of the circulatory system; Z83.3 Family history of diabetes mellitus; Z85.028 Personal history of other malignant neoplasm of stomach; Z86.718 Personal history of other venous thrombosis and embolism; Z99.81 Dependence on supplemental oxygen; Z87.891 Personal history of nicotine dependence; Z68.27 Body mass index [BMI] 27.0-27.9, adult; Z92.21 Personal history of antineoplastic chemotherapy; Z90.710 Acquired absence of both cervix and uterus
CPT/HCPCS: 36415; 70496; 70498; 70553; 71010; 71260; 74177; 80048; 80053; 80061; 81001; 82040; 82378; 82728; 82962; 83735; 84439; 84443; 84484; 85025; 85045; 86301; 87086; 90732; 93005; A9585; J1644; J2405; J3480; Q9967; J1940; J2270; J7040

== ENCOUNTER 2017-02-07 21:28 | Inpatient (IN) | payer MEDICARE ==
[~2017-02-07] VITALS: Ht 152.4 cm; Wt 84.5 kg
[~2017-02-07 21:28] MED LIST changes: +BISA10SU65 PR; +DOCU-131 PO; -DOCU-30 PO; +INSU100I18 SQ-INSULIN; +MECL-85 PO; +MORP15TA3 PO; -ONDA-40 PO; +ONDA8TAB15 PO; +OXYC1TAB7 PO; -SUCR1ORA2 PO; +SUCR1ORA5 PO
[2017-02-07 23:03] LABS: BLOOD UREA NITROGEN 19 mg/dL (7-18)
[2017-02-07 23:08] LABS: IS PT STATUS REG ER OR PRE ER? YES
[2017-02-07 23:31] LABS: HEMATOCRIT 28.3 % (34.6-47.8); HEMOGLOBIN 9.6 g/dL (11.7-16.4); WHITE BLOOD COUNT 12.3 x10^3/uL (3.4-10)
[2017-02-08] MEDS ORDERED: SODIUM CHLORIDE 0.9% 1,000 ML IV ONE (00:27)
[2017-02-08] MEDS ORDERED: ONDANSETRON 2MG/ML, 2ML IVPush PRN ×2 (00:30→02:00)
[2017-02-08] MEDS ORDERED: MORPHINE SULFATE 4 MG/ML, 1ML IVPush PRN ×2 (00:30)
[2017-02-08] MEDS ORDERED: ONDANSETRON 2MG/ML, 2ML ONE (00:33)
[2017-02-08] MEDS ORDERED: MORPHINE SULFATE 4 MG/ML, 1ML ONE (00:33)
[2017-02-08 01:12] VITALS: BP 127/68
[2017-02-08] MEDS ORDERED: POLYETHYLENE GLYCOL 17 GM PACKET PO PRN (02:00)
[2017-02-08] MEDS ORDERED: ENALAPRILAT 1.25 MG/ML, 2ML IVPush PRN (02:00)
[2017-02-08] MEDS ORDERED: BISACODYL 10 MG SUPP PR PRN (02:00)
[2017-02-08] MEDS ORDERED: hydrALAzine 20 MG/ML, 1ML IVPush PRN (02:00)
[2017-02-08] MEDS ORDERED: GUAIFENESIN/DM 200-20MG, 10ML UDC PO PRN (02:00)
[2017-02-08] MEDS ORDERED: TEMAZEPAM 15 MG CAPSULE PO PRN (02:00)
[2017-02-08] MEDS ORDERED: MECLIZINE CHEWABLE 25 MG TAB PO PRN (02:30)
[2017-02-08 02:34] VITALS: BP 127/68
[2017-02-08] MEDS: SODIUM CHLORIDE 0.9% 1,000 ML IV SCH ×2 (02:54→12:19)
[2017-02-08] MEDS: OXYcodone IR 5MG TABLET PO PRN ×2 (03:12→14:46)
[2017-02-08] MEDS: OXYcodone/APAP 5/325MG TABLET PO SCH ×4 (06:00→21:08)
[2017-02-08] MEDS: INSULIN ASPART 100 UNITS/ML, PEN SQ-INSULIN SCH ×4 (07:00→19:50)
[2017-02-08 08:05] VITALS: BP 121/71
[2017-02-08] MEDS: SITAGLIPTIN 50MG TABLET PO SCH ×2 (10:23→19:50)
[2017-02-08] MEDS: CHOLECALCIFEROL 1,000 UNIT TABLET PO SCH (10:23)
[2017-02-08] MEDS: SENNA/DOCUSATE TABLET PO SCH (10:46)
[2017-02-08] MEDS: CEFTRIAXONE PMX 1GM/50ML 50 ML IV SCH (12:19)
[2017-02-08 14:07] VITALS: BP 114/72
[2017-02-08 18:58] VITALS: BP 116/65
[2017-02-09] MEDS: SODIUM CHLORIDE 0.9% 1,000 ML IV SCH
[2017-02-09 00:55] VITALS: BP 113/57
[2017-02-09] MEDS: morphine SULFATE 10 MG/ML, 1ML IVPush PRN ×2 (04:26→11:53)
[2017-02-09] MEDS: OXYcodone/APAP 5/325MG TABLET PO SCH ×4 (05:08→21:01)
[2017-02-09 05:11] LABS: ASPARTATE AMINO TRANSFERASE 30 U/L (15-37); BLOOD UREA NITROGEN 19 mg/dL (7-18)
[2017-02-09 05:44] LABS: HEMOGLOBIN 7.3 g/dL (11.7-16.4)
[2017-02-09 06:04] LABS: HEMATOCRIT 21.7 % (34.6-47.8)
[2017-02-09 06:35] LABS: DIFF TOTAL CELLS COUNTED 100 CELL DIFF
[2017-02-09 06:38] LABS: VERIFY COUNTS? YES
[2017-02-09 06:39] LABS: ANISOCYTOSIS 1+
[2017-02-09] MEDS: INSULIN ASPART 100 UNITS/ML, PEN SQ-INSULIN SCH ×4 (07:00→21:04)
[2017-02-09 07:46] VITALS: BP 107/62
[2017-02-09] MEDS: SITAGLIPTIN 50MG TABLET PO SCH ×2 (08:27→21:01)
[2017-02-09] MEDS: SENNA/DOCUSATE TABLET PO SCH (08:27)
[2017-02-09] MEDS: CHOLECALCIFEROL 1,000 UNIT TABLET PO SCH (08:28)
[2017-02-09] MEDS: CEFTRIAXONE PMX 1GM/50ML 50 ML IV SCH (10:56)
[2017-02-09 15:28] VITALS: BP 112/54
[2017-02-09 18:33] VITALS: BP_SYST 110; BP_SYST 98; BP_DIAS 61; BP_DIAS 68
[2017-02-09] MEDS: DRONABINOL 5 MG CAPSULE PO SCH (21:01)
[2017-02-10 02:25] VITALS: BP 105/57
[2017-02-10 04:52] LABS: BLOOD UREA NITROGEN 20 mg/dL (7-18)
[2017-02-10 04:56] LABS: ASPARTATE AMINO TRANSFERASE 34 U/L (15-37)
[2017-02-10 05:25] LABS: HEMOGLOBIN 7.5 g/dL (11.7-16.4); WHITE BLOOD COUNT 9.5 x10^3/uL (3.4-10)
[2017-02-10 05:26] LABS: HEMATOCRIT 22.5 % (34.6-47.8)
[2017-02-10] MEDS: OXYcodone/APAP 5/325MG TABLET PO SCH ×4 (06:14→21:19)
[2017-02-10] MEDS: INSULIN ASPART 100 UNITS/ML, PEN SQ-INSULIN SCH ×4 (07:00→21:00)
[2017-02-10 07:07] VITALS: BP 125/69
[2017-02-10] MEDS: SENNA/DOCUSATE TABLET PO SCH (09:00)
[2017-02-10] MEDS: SITAGLIPTIN 50MG TABLET PO SCH ×2 (11:32→21:19)
[2017-02-10] MEDS: DRONABINOL 5 MG CAPSULE PO SCH ×2 (11:32→21:19)
[2017-02-10] MEDS: CHOLECALCIFEROL 1,000 UNIT TABLET PO SCH (11:32)
[2017-02-10] MEDS: CEFTRIAXONE PMX 1GM/50ML 50 ML IV SCH (12:37)
[2017-02-10 13:49] VITALS: BP 125/52
[2017-02-10 18:52] VITALS: BP 120/57
[2017-02-11 01:22] VITALS: BP 119/55
[2017-02-11 03:11] LABS: BLOOD UREA NITROGEN 20 mg/dL (7-18)
[2017-02-11 04:50] LABS: HEMATOCRIT 23.5 % (34.6-47.8); HEMOGLOBIN 7.7 g/dL (11.7-16.4); WHITE BLOOD COUNT 10.1 x10^3/uL (3.4-10)
[2017-02-11] MEDS: OXYcodone/APAP 5/325MG TABLET PO SCH ×4 (05:03→22:49)
[2017-02-11] MEDS: INSULIN ASPART 100 UNITS/ML, PEN SQ-INSULIN SCH ×4 (07:00→20:26)
[2017-02-11] MEDS: CHOLECALCIFEROL 1,000 UNIT TABLET PO SCH (08:38)
[2017-02-11] MEDS: SENNA/DOCUSATE TABLET PO SCH (08:38)
[2017-02-11] MEDS: SITAGLIPTIN 50MG TABLET PO SCH ×2 (08:38→20:28)
[2017-02-11] MEDS: DRONABINOL 5 MG CAPSULE PO SCH ×2 (08:38→20:28)
[2017-02-11 08:43] VITALS: BP 116/56
[2017-02-11] MEDS: CEFTRIAXONE PMX 1GM/50ML 50 ML IV SCH (12:20)
[2017-02-11 15:32] VITALS: BP 120/70
[2017-02-11 18:35] VITALS: BP 104/60
[2017-02-12 02:00] VITALS: BP 128/74
[2017-02-12] MEDS: OXYcodone/APAP 5/325MG TABLET PO SCH ×4 (06:19→22:20)
[2017-02-12 06:45] VITALS: BP 126/65
[2017-02-12 06:49] LABS: BLOOD UREA NITROGEN 20 mg/dL (7-18)
[2017-02-12 06:59] LABS: HEMATOCRIT 23.2 % (34.6-47.8); HEMOGLOBIN 7.7 g/dL (11.7-16.4); WHITE BLOOD COUNT 9.4 x10^3/uL (3.4-10)
[2017-02-12] MEDS: INSULIN ASPART 100 UNITS/ML, PEN SQ-INSULIN SCH ×4 (07:00→21:00)
[2017-02-12] MEDS: DRONABINOL 5 MG CAPSULE PO SCH ×2 (09:06→22:20)
[2017-02-12] MEDS: SITAGLIPTIN 50MG TABLET PO SCH ×2 (09:06→22:20)
[2017-02-12] MEDS: CHOLECALCIFEROL 1,000 UNIT TABLET PO SCH (09:07)
[2017-02-12] MEDS: SENNA/DOCUSATE TABLET PO SCH (09:07)
[2017-02-12 14:14] VITALS: BP 109/72
[2017-02-12 18:46] VITALS: BP 121/70
[2017-02-13 02:50] VITALS: BP 110/70
[2017-02-13] MEDS: morphine SULFATE 10 MG/ML, 1ML IVPush PRN ×3 (04:10→23:06)
[2017-02-13] MEDS: OXYcodone/APAP 5/325MG TABLET PO SCH ×4 (05:23→20:46)
[2017-02-13 06:36] VITALS: BP 114/69
[2017-02-13] MEDS: INSULIN ASPART 100 UNITS/ML, PEN SQ-INSULIN SCH ×4 (07:00→20:46)
[2017-02-13] MEDS: CHOLECALCIFEROL 1,000 UNIT TABLET PO SCH (10:16)
[2017-02-13] MEDS: DRONABINOL 5 MG CAPSULE PO SCH ×2 (10:16→20:46)
[2017-02-13] MEDS: SITAGLIPTIN 50MG TABLET PO SCH ×2 (10:16→20:46)
[2017-02-13] MEDS: SENNA/DOCUSATE TABLET PO SCH (10:17)
[2017-02-13 11:13] LABS: ASPARTATE AMINO TRANSFERASE 42 U/L (15-37); BLOOD UREA NITROGEN 21 mg/dL (7-18)
[2017-02-13 11:26] LABS: HEMATOCRIT 26.3 % (34.6-47.8); HEMOGLOBIN 8.7 g/dL (11.7-16.4); WHITE BLOOD COUNT 9.8 x10^3/uL (3.4-10)
[2017-02-13 12:38] VITALS: BP 108/55
[2017-02-13] MEDS: OXYcodone IR 5MG TABLET PO PRN (18:37)
[2017-02-13 19:30] VITALS: BP 114/73
[2017-02-14 02:02] VITALS: BP 116/73
[2017-02-14] MEDS: OXYcodone/APAP 5/325MG TABLET PO SCH ×2 (05:47→12:51)
[2017-02-14 06:23] LABS: HEMATOCRIT 26.6 % (34.6-47.8); HEMOGLOBIN 8.7 g/dL (11.7-16.4); WHITE BLOOD COUNT 12.7 x10^3/uL (3.4-10)
[2017-02-14] MEDS: INSULIN ASPART 100 UNITS/ML, PEN SQ-INSULIN SCH ×3 (07:00→16:30)
[2017-02-14 07:26] LABS: DIFF TOTAL CELLS COUNTED 100 CELL DIFF
[2017-02-14 07:28] LABS: ANISOCYTOSIS 1+; POLYCHROMASIA 1+; VERIFY COUNTS? YES
[2017-02-14 07:35] VITALS: BP 130/79
[2017-02-14] MEDS ORDERED: AMOXICILLIN/CLAV 875-125MG TABLET PO SCH (09:30)
[2017-02-14] MEDS: CHOLECALCIFEROL 1,000 UNIT TABLET PO SCH (10:03)
[2017-02-14] MEDS: SENNA/DOCUSATE TABLET PO SCH (10:03)
[2017-02-14] MEDS: SITAGLIPTIN 50MG TABLET PO SCH (10:03)
[2017-02-14] MEDS: DRONABINOL 5 MG CAPSULE PO SCH (10:03)
[2017-02-14] MEDS: morphine SULFATE 10 MG/ML, 1ML IVPush PRN (10:29)
[2017-02-14] MEDS ORDERED: DRON5CAP15 PO (11:35)
[2017-02-14] MEDS ORDERED: AMOX1TAB12 PO (11:35)
[2017-02-14] MEDS ORDERED: ALPR0.254 PO (11:35)
[2017-02-14 13:00] VITALS: BP 103/63
== END 2017-02-14 17:35 | disposition hospice, home (50) | DRG 542 ==
LOC: ED 22:37 → EDIP 02-08 00:32 → 3NW 02-08 00:56
PROVIDERS: ADMIT Internal Medicine; ATTEND Internal Medicine
PROC: 0T9B70Z Drainage of Bladder with Drainage Device, Via Natural or Artificial Opening (ICD-10-PCS; principal; 2017-02-08)
DX: M84.421A Pathological fracture, right humerus, initial encounter for fracture (principal); E43 Unspecified severe protein-calorie malnutrition; E87.2 Acidosis; C78.7 Secondary malignant neoplasm of liver and intrahepatic bile duct; C16.9 Malignant neoplasm of stomach, unspecified; R53.2 Functional quadriplegia; K92.2 Gastrointestinal hemorrhage, unspecified; D69.6 Thrombocytopenia, unspecified; D68.69 Other thrombophilia; N39.0 Urinary tract infection, site not specified; I10 Essential (primary) hypertension; W18.30XA Fall on same level, unspecified, initial encounter; D53.9 Nutritional anemia, unspecified; R29.6 Repeated falls; E11.9 Type 2 diabetes mellitus without complications; R62.7 Adult failure to thrive; E78.5 Hyperlipidemia, unspecified; Z87.442 Personal history of urinary calculi; Z85.028 Personal history of other malignant neoplasm of stomach; Z90.710 Acquired absence of both cervix and uterus; Z80.1 Family history of malignant neoplasm of trachea, bronchus and lung; Z83.3 Family history of diabetes mellitus; Z82.49 Family history of ischemic heart disease and other diseases of the circulatory system; Y93.89 Activity, other specified; Y92.89 Other specified places as the place of occurrence of the external cause; Y99.8 Other external cause status; Z86.718 Personal history of other venous thrombosis and embolism; Z87.891 Personal history of nicotine dependence; Z68.36 Body mass index [BMI] 36.0-36.9, adult
CPT/HCPCS: 36415; 70450; 71010; 72072; 72110; 72125; 80048; 80053; 81001; 82040; 82962; 84484; 85025; 87040; 87086; 93005; 96374; 96375; J0696; J2405; Q0167; J2270; J7030